=== PATIENT | female | born 1965 | race Caucasian/White ===

== ENCOUNTER → 2023-08-15 09:04 | Outpatient (REF) | payer OTHER, SELFPAY | LOC: RAD 09:04 | PROVIDERS: ATTENDING PHYSICIAN Family Medicine | DX: K11.1 Hypertrophy of salivary gland (principal) | CPT/HCPCS: 76536 ==

== ENCOUNTER → 2023-10-26 07:59 | Outpatient (REF) | payer OTHER, SELFPAY | LOC: RAD 07:59 | PROVIDERS: ATTENDING PHYSICIAN Family Medicine | DX: R59.0 Localized enlarged lymph nodes (principal) | CPT/HCPCS: 70491; Q9967 ==

== ENCOUNTER → 2023-11-21 07:56 | Outpatient (REF) | payer OTHER, SELFPAY | LOC: RAD 07:56 | PROVIDERS: ATTENDING PHYSICIAN Family Medicine | DX: I65.23 Occlusion and stenosis of bilateral carotid arteries (principal) | CPT/HCPCS: 93880 ==

== ENCOUNTER → 2024-06-25 15:59 | Outpatient (REF) | payer OTHER, SELFPAY ==
[2024-06-25 18:06] LABS: Potassium 4.5 mmol/L (3.5-5.1)
== END ==
LOC: REG 15:59
PROVIDERS: ATTENDING PHYSICIAN Family Medicine
DX: E87.5 Hyperkalemia (principal)
CPT/HCPCS: 36415; 84132

== ENCOUNTER 2024-11-19 06:27 | Day surgery (SDC) | payer OTHER, SELFPAY ==
[2024-11-19 07:45] LABS: Glucose - Point of Care 108 mg/dl (70-99)
== END 2024-11-19 09:43 | disposition home or self-care (01) ==
LOC: GI 06:27
PROVIDERS: ATTENDING PHYSICIAN Internal Medicine
DX: Z12.11 Encounter for screening for malignant neoplasm of colon (principal); Z86.0100 Personal history of colon polyps, unspecified
CPT/HCPCS: G0105; 82962

== ENCOUNTER 2025-02-02 19:08 | Emergency (ER) | payer OTHER, SELFPAY ==
[2025-02-02 19:18] VITALS: BP 158/82
--- NOTE | 2025-02-02 19:21 | ED.GENMED ---
History of Present Illness
General
Chief Complaint: Flank Pain
Source: patient
Exam Limitations: none
Time Seen by Provider: 02/02/25 19:20
Nursing documentation reviewed up to this point in time: agreed with
History of Present Illness
History of Present Illness:
59 yo female w h/o HTN, Hypothyroid, psoriatic arthritis presents for right flank and right abdominal pain starting earlier today, took Tylenol at 530 with little relief. She states pain is 6/10 at this time and feels nauseous, she has not vomited.
Denies diarrhea/constipation. Denies fever/chills.
Past History
Past History
ED Past Medical History: HTN, Hypothyroidism, Other (Psoriasis and psoriatic arthritis ) and Other (Endometriosis )
ED Past Surgical History: Gynecological (D&C, laparoscopy ) and Orthopedic (Cervical discectomy with fusion June 2009 )
Social History
Tobacco: Non-smoker
Alcohol: None
Drug: None
Personal:
Living: with family
Employment: Employed
Review of Systems
Review of Systems
Allergies reviewed?: Yes
All Other Systems: ROS reviewed and negative except as documented in HPI and ROS
Phy Exam
Physical Exam
Physical Exam:
GENERAL: No acute distress. A&Ox3.
CONSTITUTIONAL: Afebrile.
EYES: clear, conjunctivae normal
ENMT: moist mucus membranes, Pharynx nl
RESPIRATORY: Regular respirations, nonlabored, lungs clear.
CARDIOVASCULAR: Regular rate and rhythm, no murmurs, no rubs.
GI: Soft, mild tenderness left abdomen, normal BS
MUSCULOSKELETAL: Moves with ease. Well perfused.
SKIN: Warm, dry, pink
PSYCH: Normal mood and affect. Well kept, interactive and appropriate
NEUROLOGIC: Awake, alert and oriented. No focal neurological deficits
Course
Orders/Labs/Results
Orders:
Orders
02/02/25 19:35
Complete Blood Count/With Diff Urgent
Comprehensive Metabolic Panel Urgent
Urinalysis Reflex To Culture Urgent
Date Specimen was Collected: 02/02/25
Time Specimen was Collected: 19:28
Urine Microscopic Reflex Cult Urgent
Urine Culture Urgent
BRENNA Source: U
Specimen Description:
Date Specimen was Collected: 02/02/25
Time Specimen was Collected: 19:28
02/02/25 19:39
CT Abd/pel Without Iv Or Oral Urgent
Comment:
Reason For Exam: L flank and abd pain
02/02/25 19:44
Ketorolac [Toradol] 15 mg IV NOW STA
Ondansetron Injectable [Zofran] 4 mg IV NOW STA
Abnormal Lab Results
02/02/25
19:35
RBC 3.85 L 10^6/uL
(4.20-5.40)
Hgb 11.4 L g/dL
(12.0-16.0)
Hct 35.2 L %
(37.0-47.0)
MCHC 32.4 L g/dL
(33.0-37.0)
Monocytes % 10.7 H %
(1.7-9.3)
Sodium 131 L mmol/L
(135-145)
BUN 20 H mg/dl
(7-17)
Leukocyte Esterase Rfl 2+ A
(Negative)
Urine Bacteria (Reflex) Few A
(Negative)
02/02/25 19:35
02/02/25 19:35
Vital Signs
Initial and Last Documented VS:
Initial Vital Signs
Temp Pulse Resp BP Pulse Ox
97.7 F 70 20 158/82 97
02/02/25 19:18 02/02/25 19:18 02/02/25 19:18 02/02/25 19:18 02/02/25 19:18
Last Documented Vital Signs
Temp Pulse Resp BP Pulse Ox
97.7 F 65 15 132/81 95
02/02/25 19:18 02/02/25 20:30 02/02/25 20:15 02/02/25 20:00 02/02/25 20:30
MDM/Problems Addressed
Differential Diagnosis Includes:
Kidney stone, pyelonephritis, constipation, musculoskeletal pain
MDM/Problems Addressed:
59 yo female w h/o HTN, Hypothyroid, psoriatic arthritis presents for right flank and right abdominal pain starting earlier today, took Tylenol at 530 with little relief. She states pain is 6/10 at this time and feels nauseous, she has not vomited.
Denies diarrhea/constipation. Denies fever/chills.
Afebrile, NAD
8:00 PM:
CBC with no clinically significant abnormality
CMP with no clinically significant abnormality
UA: 2+ leukocyte Estrace, few bacteria otherwise negative
CT abdomen pelvis: Radiology report read: 1. No significant acute abnormality identified in the abdomen or pelvis, within the limits of unenhanced CT, as described above. No obstructing urinary calculi or hydronephrosis. Normal appendix.
2. Mild to moderate diffuse colonic stool burden may reflect constipation.
Results discussed with patient, all questions answered
*Pulse Oximetry
Patient hypoxic: not evaluated
*Critical Care Note
Total Time (30-74mins, 75-104mins- exclusive of procedures): Not Applicable
ED Attending Note
-
Portions of this chart may have been created with voice recognition software.� Occasional wrong word or��sound alike� substitutions may have occurred due to the inherent limitations of voice recognition software.
Discharge Plan
Departure
Patient Disposition: Home (Routine Discharge)
Date of Disposition: 02/02/25
Time of Disposition: 21:43
Patient with high blood pressure during this ER visit?: No
Condition: Good
Discharge Problem:
Abdominal pain
Instructions: Constipation in adults - ED (DC), Abdominal Pain
Prescriptions:
No Action
Synthroid
100 mcg PO DAILY
Verapamil
240 mg PO DAILY
omeprazole [Prilosec] 40 MG capsule,delayed release(DR/EC)
40 mg PO DAILY
hydroxychloroquine 200 MG tablet
200 mg PO HS
vitamin B complex [Neurodep] 1 CAP capsule
1 cap PO DAILY
bupropion HCl 300 MG tablet extended release 24 hr
300 mg PO DAILY
Vitamin D3:
1 tab PO DAILY
diphenhydramine HCl 25 MG strip
25 mg PO HSPRN PRN (Reason: insomnia)
oxycodone-acetaminophen 5 MG/325 MG tablet
1 tab PO Q6HPRN PRN (Reason: for mod pain) Qty: 12 0RF
ibuprofen 200 MG tablet
200 mg PO Q4HPRN PRN (Reason: mod pain) 0RF
amoxicillin-pot clavulanate 1 TABLET tablet
1 tab PO Q12 Qty: 14 0RF
Saccharomyces boulardii 250 MG capsule
250 mg PO BID Qty: 14 0RF
Referrals:
Sorin Campoverde DO [Family Provider, Family Practice] - As needed
Activity Restrictions/Additional Instructions:
As we discussed, nothing worrisome in your workup here today.
Your CAT scan is showing possible constipation.
Interventions
Interventions:
*Risk Screen - Suicide Last Done: 02/02/25 19:18
*General Assessment Last Done: 02/02/25 19:18
*Neglect/Abuse Screening Last Done: 02/02/25 19:18
*ED- Fall Risk Assessment Last Done: 02/02/25 22:09
*ED COVID-19 Vaccine History Last Done: 02/02/25 19:18
*ED Influenza Vaccine History Last Done: 02/02/25 19:18
*Nursing Disposition Last Done: 02/02/25 22:09
JO-Kjrqpl-Sbzhpvhrzw Assessment Last Done: 02/02/25 19:42
ED-Female Genitourinary Assessment Last Done: 02/02/25 19:42
Discharge Date and Time
Discharge Date/Time: 02/02/25 22:10
Print Language: CAMEROONIAN
[2025-02-02 19:41] VITALS: BP 155/89; BMI 34.0
[2025-02-02 19:48] LABS: Hematocrit 35.2 % (37.0-47.0); Hemoglobin 11.4 g/dL (12.0-16.0); Mean Corp Hgb Conc. 32.4 g/dL (33.0-37.0); Mean Corpuscular Volume 91.4 fL (81.0-99.0); Nucleated Red Blood Cells % 0 %; Platelet Count 225 10^3/uL (130-400); Red Cell Dist. Width 13.2 % (11.5-14.5)
[2025-02-02] MEDS: ZOFRAN 4 MG IV (19:48)
[2025-02-02] MEDS: TORADOL 15 MG IV (19:48)
[2025-02-02 19:56] LABS: Urine Character Clear (Clear)
[2025-02-02 20:00] VITALS: BP 132/81
[2025-02-02 20:02] LABS: Urine Red Blood Cell None Seen /HPF (0-2)
[2025-02-02 20:13] LABS: ALT (SGPT) 24 U/L (0-35); AST (SGOT) 23 U/L (14-36); Albumin 4.5 g/dl (3.5-5.0); Alkaline Phosphatase 46 U/L (38-126); Blood Urea Nitrogen 20 mg/dl (7-17); Calcium 9.4 mg/dl (8.4-10.2); Carbon Dioxide 26 mmol/L (22-30); Chloride 102 mmol/L (98-107); Estimated Creatinine Clearance 87 ml/min; Glucose 96 mg/dl (70-99); Potassium 3.9 mmol/L (3.5-5.1); Sodium 131 mmol/L (135-145); Total Protein 6.8 g/dl (6.3-8.2); eGFR > 60.00
== END 2025-02-02 22:10 | disposition home or self-care (01) ==
LOC: EMR 19:08
PROVIDERS: Registered Nurse; EMERGENCY PHYSICIAN Emergency Medicine; FAMILY PHYSICIAN Family Medicine
DX: R10.A1 Flank pain, right side (principal); I10 Essential (primary) hypertension; E03.9 Hypothyroidism, unspecified; L40.50 Arthropathic psoriasis, unspecified; L40.9 Psoriasis, unspecified
CPT/HCPCS: 99284; 96374; 96375; 74176; 80053; 81003; 81015; 85025; 87077; 87086; 87186

== ENCOUNTER → 2025-02-20 13:10 | Outpatient (REF) | payer OTHER, SELFPAY | LOC: RAD 13:10 | PROVIDERS: ATTENDING PHYSICIAN Surgery Vascular Surgery; FAMILY PHYSICIAN Family Medicine; REFERRING PHYSICIAN Family Medicine | DX: I65.23 Occlusion and stenosis of bilateral carotid arteries (principal); M25.552 Pain in left hip; M54.50 Low back pain, unspecified | CPT/HCPCS: 72110; 73502; 93880 ==